=== PATIENT | female | born 1950 | race Caucasian/White ===

== ENCOUNTER 2016-09-05 07:45 | Inpatient (IN) | payer MEDICARE, OTHER ==
[2016-09-02 13:59] LABS: HEMATOCRIT 34.8 % (36.0-48.0); HEMOGLOBIN 10.9 g/dL (12.0-16.0)
[2016-09-02 14:18] LABS: BUN (BLOOD UREA NITROGEN) 5 MG/DL (6-23); CHLORIDE, SERUM 96 MMOL/L (96-112); CO2 (CARBON DIOXIDE) 29 MMOL/L (24-34); GFR AFRICAN AMERICAN 91 ML/MIN (>=60); GFR NON AFRICAN AMERICAN 78 ML/MIN (>=60); POTASSIUM, SERUM 3.9 MMOL/L (3.5-5.3); SODIUM, SERUM 133 MMOL/L (135-148)
[2016-09-02 14:20] LABS: GLUCOSE, SERUM 381 MG/DL (60-99)
[2016-09-03 11:45] LABS: ALBUMIN 3.7 G/DL (3.5-5.0); ALKALINE PHOSPHATASE 100 U/L (45-117); SGOT(AST) 9 U/L (5-40); SGPT(ALT) 14 U/L (5-65); TOTAL BILIRUBIN 0.2 MG/DL (0-1.2)
[2016-09-03 11:46] LABS: DIRECT BILIRUBIN < 0.1 MG/DL (0.0-0.4); INDIRECT BILIRUBIN(NOT ORDER) 0.1 MG/DL (0.1-0.9)
[2016-09-03 11:56] LABS: TOTAL PROTEIN 7.6 G/DL (6.0-8.5)
--- NOTE | ~2016-09-05 | OP ---
Record Of Operation [facility] [address] [place]. [address] NAME: NAILA LANDAVERDE : 54 STATUS : ADM IN PAT#: [id number] AGE: 65 ADM/REG DATE : 09/05/16 MR#: [id number] REPORT SERV DATE: 09/05/16 DICTATED BY: TONA PHILIPPE DATE: 09/05/16 REPORT STATUS : Draft TRANSCRIBED BY: MODL DATE: 09/05/16 DATE OF PROCEDURE: 09/05/2016 PREOPERATIVE DIAGNOSIS: Abdominal aortic aneurysm with recent rapid growth. POSTOPERATIVE DIAGNOSIS: Abdominal aortic aneurysm with recent rapid growth. PROCEDURE: 1. Ultrasound-guided percutaneous access, bilateral common femoral arteries. 2. Catheter placement in the abdominal aorta from bilateral femoral access. 3. Endovascular repair of abdominal aortic aneurysm (Medtronic Endurant 23 x 16 x 166 main body from the right and 16 x 16 x 124 left iliac limb). SURGEON: Tona Philippe M.D. ANESTHESIA: General endotracheal. ESTIMATED BLOOD LOSS: 50 mL. CONTRAST: 50 mL. IV FLUIDS: 900 mL. COMPLICATIONS: None. INDICATIONS: Ms Landaverde is a pleasant 65-year-old female with a known infrarenal abdominal aortic aneurysm. However, on recent surveillance imaging, it was found to have increased almost a centimeter in seven months. She has a good endovascular candidate. As a result, she is recommended for endovascular repair. PROCEDURE IN DETAIL: After informed consent was obtained, the patient was brought to the endovascular suite and placed in supine position. After administration of anesthesia, she was intubated. She was prepped and draped in the usual sterile fashion. A time-out was performed. I commenced the procedure with ultrasound-guided percutaneous access, bilateral common femoral arteries. Permanent image of the artery documenting patency was saved and stored in the patient's chart. Accessed with micropuncture needles bilaterally and passed micropuncture wires confirmed within the iliacs under fluoroscopy. I then placed a micropuncture sheath, followed by Bentson wires. We then pre-dilated both access sites after making a stab incision overlying the access site down the common femoral artery. After that, we systemically heparinized. After that, two ProGlide closure devices were placed on each side in the Preclose technique. We then placed 11-Bengali sheaths bilaterally. After that, we advanced a Bentson wire #2 from the right femoral access, then exchanged for an Amplatz wire. From the left, we advanced a Bentson wire and [place] flush catheter. Based on her preoperative CT scan, we also had already selected our aortic device. As a result, we removed the 11-Bengali sheath from the right and advanced the Medtronic Endurant 23 x 16 x 166 main body device from the right over the Amplatz wire. Record Of Operation [facility] [id number] [place]. [address] NAME: NAILA LANDAVERDE : 54 STATUS : ADM IN PAT#: [id number] AGE: 65 ADM/REG DATE : 09/05/16 MR#: [id number] REPORT SERV DATE: 09/05/16 DICTATED BY: TONA PHILIPPE DATE: 09/05/16 REPORT STATUS : Draft TRANSCRIBED BY: TAE DATE: 09/05/16 This was brought up in the approximate position of the infrarenal aorta. We then performed magnified abdominal aortogram, which clearly demonstrates the level of bilateral renal arteries, which were patent with no stenosis. There is no involvement of the renal arteries with the aneurysm. There was a long infrarenal neck. The aneurysm was clearly demonstrated with no active contrast extravasation. After that, we deployed the main body device just below the lowest renal artery, which is the right down to the contralateral gate. We then released the suprarenal fixation. This was uneventful. After that, we cannulated the contralateral gate from the left femoral access with a Bentson wire #2. From contrast injection through the bur #2 to ensure we were within the lumen of the stent graft. We then placed an Amplatz wire on that side. Marker flush catheter was advanced from the left femoral access. Left iliofemoral arteriogram was performed through the sheath. This demonstrated clearly the left internal iliac artery. Based on this measurement, we selected a 16 x 16 x 124 left iliac limb. This was delivered over the Amplatz wire after it was replaced without difficulty. We then completed the delivery of the main body device. The delivery system was removed and sheaths were placed in the right femoral access. After that, we used a Reliant balloon to balloon the proximal and distal fixation sites, as well as stent overlap sites. We then replaced the [place] flush catheter and performed completion aortogram, which showed perfect positioning of the aortic stent graft with no impingement of flow on the renal arteries or internal iliac arteries bilaterally. There is no evidence of endoleak. After that, wires and catheters were removed. Each femoral access site was closed successfully with the ProGlide closure devices in the Preclose technique. We then closed each femoral incision with 4-0 Monocryl and Dermabond. Sterile dressings were applied. The patient tolerated the procedure well with no complications. I was present and participated the entire case as dictated. LAURIE/TAE Tona Philippe M.D. / [id number] CC: Sharmaine Ramírez M.D.
[~2016-09-05 07:45] MED LIST: ADVAIR250 INH; ADVIL PO; APIDRA SC; ATV1 PO; B COMPLETE PO; B12100T PO; CEFAZ1 IM; CIP5 PO; CLEOCIN300 MG PO; CO Q-10100 MG PO; CODEINE/GUAI1 ML PO; CYANO1000T PO; CYMBALTA60 PO; DCN100 PO; DICLOXACILL250 MG OR; ENDOCET1 TA3 PO; FLEX PO; GLUCPH PO; HARD NAILS OR; HARD NAILS PO; HYDROMET1 ML PO; KAPIDEX60 MG PO; KLOR-CON 1010 MEQ PO; LANTUS SC; LANTUSCART SC; LORTAB10 PO; METHOC500B PO; MOBIC7.5 PO; MULTIVIT/MIN PO; MVI PO; NAFCILLIN10 GM IV; NASACORTAQ NAS; NEUR100 PO; NEUR300 PO; NEUR600 PO; NORCO1 TAB PO; OXYCOD PO; OXYCON10 PO; PCET PO; PERCOCET1 TA4 PO; PR25 PO; PRILOSEC40 MG PO; PRINZIDE PO; PROAIR HFA INH; PROBIOTIC; PROVENTSOL INH; RESTORIL30 MG PO; TESS PO; TOPXL50 PO; TRAZ50 PO; VENTOLIN HFA INH; VIST50 PO; VITAMIN D400 UNI1 PO; XANAX1 MG PO; ZANTAC150 MG PO; ZESTORETIC1 TA1 PO; ZOFRAN4 PO; ZOL100 PO
[2016-09-05 11:14] LABS: BE (BASE EXCESS) -1.2 MEQ/L (0 +/- 2.5); BIPAP 16/8 cm.H2O; CARBOXYHEMOGLOBIN 3.4 % (0-3); HCO3 (ACTUAL BICARBONATE) 26.8 MEQ/L (23-27); HEMOBLOGIN CONTENT 11.1 G/DL (12-16); INSTRUMENT SERIAL # 11843; METHEMOGLOBIN 0.4 % (0-3); OPERATOR ID 19104; PCO2 (CO2 TENSION) 62 MMHG (35-45); PO2 (O2 TENSION) 399 MMHG (79-93); SAMPLE Arterial; pH 7.26 (7.37-7.43)
[2016-09-05 13:28] LABS: BE (BASE EXCESS) -0.2 MEQ/L (0 +/- 2.5); BIPAP 16/8 cm.H2O; CARBOXYHEMOGLOBIN 1.9 % (0-3); HEMOBLOGIN CONTENT 10.9 G/DL (12-16); INSTRUMENT SERIAL # 11843; METHEMOGLOBIN 0.3 % (0-3); O2 CONTENT 15.3 VOL% (18-24); OPERATOR ID 19104; PCO2 (CO2 TENSION) 50 MMHG (35-45); PO2 (O2 TENSION) 209 MMHG (79-93); SAMPLE Arterial; pH 7.34 (7.37-7.43)
[2016-09-05 15:31] LABS: BE (BASE EXCESS) -0.7 MEQ/L (0 +/- 2.5); BIPAP 16/8 cm.H2O; CARBOXYHEMOGLOBIN 1.9 % (0-3); HCO3 (ACTUAL BICARBONATE) 25.7 MEQ/L (23-27); HEMOBLOGIN CONTENT 10.8 G/DL (12-16); INSTRUMENT SERIAL # 11843; METHEMOGLOBIN 0.3 % (0-3); O2 CONTENT 14.7 VOL% (18-24); OPERATOR ID 19104; PCO2 (CO2 TENSION) 50 MMHG (35-45); PO2 (O2 TENSION) 118 MMHG (79-93); SAMPLE Arterial; pH 7.33 (7.37-7.43)
[2016-09-06 04:18] LABS: HEMOGLOBIN 9.5 g/dL (12.0-16.0); MEAN CORPUS HGB CONC 30.8 g/dL (32.0-36.0); MEAN CORPUSCULAR HEMOGLOB 24.3 pg (26.0-34.0); MEAN CORPUSCULAR VOLUME 78.8 fL (80-100); MEAN PLATELET VOLUME 10.5 fL (9.2-13.0); RBC DISTRIBUTION WIDTH 17.3 % (12.0-16.0); RED CELL COUNT 3.91 10/6/uL (4.0-5.6)
[2016-09-06 04:27] LABS: HEMATOCRIT 30.8 % (36.0-48.0); PLATELET COUNT 128 10/3/uL (150-400)
[2016-09-06 04:32] LABS: BUN (BLOOD UREA NITROGEN) 5 MG/DL (6-23); CHLORIDE, SERUM 104 MMOL/L (96-112); CO2 (CARBON DIOXIDE) 27 MMOL/L (24-34); GFR AFRICAN AMERICAN 112 ML/MIN (>=60); GFR NON AFRICAN AMERICAN 97 ML/MIN (>=60); SODIUM, SERUM 139 MMOL/L (135-148)
[2016-09-06 04:36] LABS: CALCIUM, SERUM 8.2 MG/DL (8.5-10.4); GLUCOSE, SERUM 168 MG/DL (60-99); POTASSIUM, SERUM 3.9 MMOL/L (3.5-5.3)
[2016-09-06 07:50] LABS: BASOPHILS 0.1 %; EOSINOPHILS 1.6 %; IMMATURE GRANULOCYTES 0.3 %; LYMPHOCYTES 10.6 %; LYMPHOCYTES ABSOLUTE 0.74 10/3/uL (0.67-4.30); MONOCYTES 7.6 %; MONOCYTES ABSOLUTE 0.53 10/3/uL (0.21-1.20); NEUTROPHILS 79.8 %; NEUTROPHILS ABSOLUTE 5.55 10/3/uL (2.02-8.40)
[2016-09-06 07:51] LABS: BASOPHILS ABSOLUTE 0.01 10/3/uL (0.0-0.16); EOSINOPHILS ABSOLUTE 0.11 10/3/uL (0.0-0.53); IMMATURE GRANULOCYTES ABSOLUTE 0.02 10/3/uL (0.0-0.11); MANUAL DIFF NO %
== END 2016-09-06 14:55 | disposition home or self-care (01) | DRG 269 ==
LOC: SDC/OF 07:45 → CVICU 12:49
PROVIDERS: Surgery
PROC: 04V03DZ Restriction of Abdominal Aorta with Intraluminal Device, Percutaneous Approach (ICD-10-PCS; principal; 2016-09-05 08:15)
DX: I71.4 Abdominal aortic aneurysm, without rupture (principal); K31.84 Gastroparesis; E11.43 Type 2 diabetes mellitus with diabetic autonomic (poly)neuropathy; I10 Essential (primary) hypertension; Z90.710 Acquired absence of both cervix and uterus; F17.210 Nicotine dependence, cigarettes, uncomplicated; Z79.899 Other long term (current) drug therapy; F32.9 Major depressive disorder, single episode, unspecified; F41.9 Anxiety disorder, unspecified; J44.9 Chronic obstructive pulmonary disease, unspecified; K21.9 Gastro-esophageal reflux disease without esophagitis; G40.909 Epilepsy, unspecified, not intractable, without status epilepticus; R07.89 Other chest pain
CPT/HCPCS: 34802; 36200; 36415; 71010; 75952; 76937; 80048; 80076; 82805; 82962; 85014; 85018; 85025; 86850; 86900; 86901; 87641; 93005; 94660; A9270-GY; C1725; C1760; C1768; C1769; C1876; C1894; J0330; J0690; J2250; J2370; J2405; J2710; J2720; J3010; Q9966